=== PATIENT | male | born 1950 | race Caucasian/White ===

== ENCOUNTER 2024-05-04 06:09 | Day surgery (SDC) | payer MEDICARE, BC, SELFPAY ==
[2024-04-30 13:58] VITALS: BMI 30.9
[2024-05-04 06:34] VITALS: BP 165/74; PULSE 67; RESP 18; TEMP 36.7; O2SAT 97
[2024-05-04] MEDS: LACTATED RINGERS 1000ML 1,000 ML 25 ML IV (06:54)
--- NOTE | 2024-05-04 07:15 | EXP.ANES.CKL ---
[facility] Disclaimer: The information contained in this section may have been updated after the patient was seen, as this information can be updated by other users. Medical History (Updated 05/04/24 @ 07:01 by Lashon Aparicio RN) Eczema Thyroid disease Pre-diabetes Hypertension Skin cancer GERD (gastroesophageal reflux disease) Dysphagia Surgical History (Updated 05/04/24 @ 07:01 by Lashon Aparicio RN) Hx of cataract surgery Hx of colonoscopy H/O esophagogastroduodenoscopy Hx of tonsillectomy History of surgery Hx of total knee replacement Family History (Updated 05/04/24 @ 06:51 by Lashon Aparicio RN) Other Diabetes Heart attack Social History (Updated 05/04/24 @ 06:52 by Lashon Aparicio RN) Smoking Status: Never smoker alcohol intake: never substance use type: denies use current occupational status: employed Travel in the last 8 weeks: None caffeine: No [facility] Anesthesia Checklist Patient Identification Patient Identification: Arm Band, Family and Verbal (Name & ) Structural Data Admitted From: Home Planned Operative Procedure/s: EGD Consent for Planned Operative Procedure(s) Verified: Yes Verified Documents: Surgical Consent and History and Physical NPO Status Verified Time NPO: 22:00 Additional verifications Fingerstick Blood Glucose: 117 Patient : No Anesthesia Reactions: No Previous Colonoscopy: Yes Cardiovascular Assessment Heart Sounds: S1 & S2 Pulse Rhythm: Irregular Peripheral Edema: No Airway Assessment Mallampati Score:: Class II Dentition: Good Dentition (Nothing loose per pt.) Neurological Assessment Level of Consciousness: Awake, Alert, Appropriate and Follows Commands Hx Seizures: No Numbness or tingling in extremities: No Anesthesia Plan Anesthesia Risk discussed: Yes Anesthesia Plan: Verified ASA Class: III Anesthesia Type: MAC
--- NOTE | 2024-05-04 07:30 | EXP.HP ---
History of Present Illness *Admission Date: 05/04/24 *Reason for visit:: GERD/dysphagia *History of present illness: Mr. Patel is a 73-year-old gentleman who is here for chronic GERD now with dysphagia. The examination is deemed medically necessary for diagnostic/therapeutic EGD. The patient has been seen, interviewed and examined prior to the procedure by both myself and the anesthesia provider. [facility] Disclaimer: The information contained in this section may have been updated after the patient was seen, as this information can be updated by other users. Medical History (Updated 05/04/24 @ 07:01 by Lashon Aparicio RN) Eczema Thyroid disease Pre-diabetes Hypertension Skin cancer GERD (gastroesophageal reflux disease) Dysphagia Surgical History (Updated 05/04/24 @ 07:01 by Lashon Aparicio RN) Hx of cataract surgery Hx of colonoscopy H/O esophagogastroduodenoscopy Hx of tonsillectomy History of surgery Hx of total knee replacement Family History (Updated 05/04/24 @ 06:51 by Lashon Aparicio RN) Other Diabetes Heart attack Social History (Updated 05/04/24 @ 07:16 by Isamar Pierce CRNA) Smoking Status: Never smoker alcohol intake: never substance use type: denies use current occupational status: employed Travel in the last 8 weeks: None caffeine: No Have you lived/traveled outside US in past 30 days?: No Contact w/someone who lives/traveled outside US past 30 days?: No Exposure to someone with infectious disease in past 14 days?: No Do you have a fever (greater than 100.4 F or 38 C)?: No Have you tested positive for COVID-19: Yes Exposed to someone with COVID-19 in past 14 days?: Yes Do you have a sore throat?: No Do you have a cough?: No Do you have any weakness?: No Are you experiencing any nausea/vomitting?: No Do you have any diarrhea?: No Are you experiencing any unusual bleeding?: No Do you have any muscle aches/pain?: No Do you have any abdominal pain?: No Are you experiencing loss of taste or smell?: No Other Medical History Have you received the Pneumonia Vaccine: No Review of Systems Review of Systems Review of systems (narrative): Negative *Cardiovascular Comments: Negative *Gastrointestinal Comments: Negative *Genitourinary Comments: Negative *Musculoskeletal Comments: Negative *Neurologic Comments: Negative Meds Home Medications and Allergies Home Medications ?Medication ?Instructions ?Recorded ?Confirmed ?Type amlodipine 5 mg tablet 5 mg PO DAILY 04/01/24 05/04/24 History cholecalciferol (vit D3) 1,000 2 tab PO DAILY 04/01/24 05/04/24 History unit-vitamin K2 (MK4) 100 mcg tablet (K2 Plus D3) coQ10 (ubiquinol) 100 mg capsule 100 mg PO DAILY 04/01/24 05/04/24 History (Qunol Christopher CoQ10) doxazosin 4 mg tablet 8 mg PO BID 04/01/24 05/04/24 History hydralazine 100 mg tablet 100 mg PO TID 04/01/24 05/04/24 History levothyroxine 50 mcg tablet 50 mcg PO DAILY 04/01/24 05/04/24 History magnesium citrate 125 mg capsule 125 mg PO DAILY 04/01/24 05/04/24 History metformin 500 mg tablet 1,000 mg PO BID 04/01/24 05/04/24 History metoprolol succinate 50 mg 50 mg PO DAILY 04/01/24 05/04/24 History tablet,extended release 24 hr multivitamin 1 tab PO DAILY 04/01/24 05/04/24 History omeprazole 40 mg capsule,delayed 40 mg PO DAILY #30 caps 04/01/24 05/04/24 Rx release tadalafil 10 mg tablet 5 mg PO DAILY 04/01/24 05/04/24 History testosterone enanthate 100 mg/0.5 100 mg SQ WEEKLY 04/01/24 05/04/24 History mL subcutaneous auto-injector vitamin B complex 1 cap PO DAILY 04/01/24 05/04/24 History sacubitril 97 mg-valsartan 103 mg 1 tab PO BID 05/04/24 05/04/24 History tablet (Entresto) New Prescriptions to Start Prescriptions: Allergies Allergy/AdvReac Type Severity Reaction Status Date / Time No Known Allergies Allergy Verified 05/04/24 06:24 Exam Data for Last 24 hours Vital signs and Labs for Last 24 Hours: Temp Pulse Resp BP Pulse Ox O2 Del Method 98.0 F 67 18 165/74 H 97 Room Air 05/04/24 06:34 05/04/24 06:34 05/04/24 06:34 05/04/24 06:34 05/04/24 06:34 05/04/24 06:34 *Routine HEENT Exam Head: Present normocephalic Eye: Present EOMI and PERRL ENT: Present mucous membranes moist *Routine Neck Exam Neck: Present supple *Routine Respiratory Exam Respiratory: Present CTA bilaterally *Routine Cardiovascular Exam Cardiovascular: Present RRR *Routine Abdominal Exam Abdominal: Present soft and normoactive bowel sounds; Absent tenderness *Routine Rectal Exam Rectal:: deferred *Routine Genitalia Exam Genitalia:: deferred *Routine Extremities Exam Extremities: Absent cyanosis, clubbing or edema *Routine Skin Exam Skin: Present warm; Absent rash *Routine Neurological Exam Neurological: Present alert and oriented X3 Assessment and Plan *Assessment and plan (1) GERD (gastroesophageal reflux disease): Status: Acute Category: Medical Code(s): K21.9 - Gastro-esophageal reflux disease without esophagitis (2) Dysphagia: Status: Acute Category: Medical Code(s): R13.10 - Dysphagia, unspecified Plan A/P: 1. GERD now with dysphagia is the preprocedural diagnosis. The patient will be anesthetized/sedated using MAC sedation. The patient has been seen and examined. Cardiac and lung assessment prior to the examination is stable. Proceed with planned diagnostic/therapeutic EGD
[2024-05-04 07:32] VITALS: O2SAT 98
--- NOTE | 2024-05-04 07:32 | P.PCN_ITS ---
[facility] Procedure Note Date: 05/04/24 Procedure Note:: Upper Endoscopy Procedure Report: Esophagogastroduodenoscopy with cold biopsies and TTS balloon dilation Endoscopost: Travis Sanchez II, MD Referring Physician: Elieser Powell MD Date of Procedure: May 02, 2024 Equipment: Olympus GIF 190 standard upper endoscope Sedation: MAC sedation Indications: Mr. Patel is a 73-year-old gentleman who reports chronic GERD for 25 years. He does take [id number] omeprazole, Gas-X and Tums. He has had some increased swallowing difficulty/dysphagia to larger pills and tablets. Sometimes liquids make him cough. He has had some increased wheezing. He does get some symptoms postprandially. He does take omeprazole 40 mg in the morning. He does state that he had a bleeding duodenal ulcer in 2003 requiring blood transfusion. At that time, Dr. Jose Manuel Goodwin (seat trimmer at [place]) did upper endoscopy and colonoscopy. At the time of his upper endoscopy, he did coagulation or gold probe. He also dilated the esophagus in 2003. His last colonoscopy was in 2003. The patient did have a negative Cologuard test 2 years ago. After his office visit, I did give him samples of Voquezna 10 mg and he had complete relief of his GERD symptoms without any breakthrough. He often does get breakthrough with omeprazole 40 mg daily. Procedure: Prior to the procedure, a history and physical exam was performed, and patient's medications and allergies were reviewed. The risks, benefits and alternatives of the sedation and procedure were discussed with the patient. All questions were answered and informed consent was obtained. The patient was brought to the procedure room. Patient identification and proposed procedure were verified by the physician and the nurse. The patient was placed in a left lateral decubitus position and the scope was passed under direct vision. Throughout the procedure, the patient's blood pressure, pulse, and oxygen saturations were monitored continuously. The upper GI endoscopy was accomplished without difficulty. The patient tolerated the procedure well. Findings: The scope was passed directly into the upper esophagus and advanced to the third portion of the duodenum. The post bulbar duodenum and duodenal bulb were normal with normal mucosa and conniventes. The scope was withdrawn through a normal duodenal bulb and pylorus into the stomach. There was mild linear reactive gastropathy of the antrum. There were scattered gastric fundic gland polyps in the body and fundus of the stomach. Upon retroflexion there was no hiatal hernia. Cold biopsies were taken from the antrum. One of the fundic gland polyps was removed via cold biopsy as well. The scope was then withdrawn into the esophagus. There was no evidence of reflux esophagitis, Yarbrough's, Schatzki's ring or peptic stricture. There was no corrugation or furrowing. There were strong tertiary contractions and evidence of moderate esophageal dysmotility. The entire esophagus was dilated to 60 Estonian/20 mm with a TTS hydrostatic balloon. There was minimal resistance. The remainder of the esophageal mucosa was normal. Impression: 1. Nonerosive GERD with moderate esophageal dysmotility status post dilation to 20 mm 2. Mild linear reactive gastropathy of antrum 3. Gastric fundic gland polyps Plan: I will follow-up the biopsies. The patient does have uncomplicated GERD. We will discuss treatment options. The patient did have clinical improvement with Voquezna without breakthrough symptoms which often occur with omeprazole 40 mg.
[2024-05-04 07:45] VITALS: BP 139/69; PULSE 62; RESP 18; TEMP 37.1; O2SAT 96
[2024-05-04 07:55] VITALS: BP 152/73; PULSE 73; RESP 18; O2SAT 96
[2024-05-04 08:05] VITALS: BP 158/69; PULSE 70; RESP 20; O2SAT 96
[2024-05-04 08:25] VITALS: BP 149/76; PULSE 62; RESP 18; O2SAT 95
== END 2024-05-04 08:25 | disposition home or self-care (01) ==
PROVIDERS: PCP Family Medicine; Visit Provider Internal Medicine Gastroenterology
PROC: 0DJ08ZZ Inspection of Upper Intestinal Tract, Via Natural or Artificial Opening Endoscopic (ICD-10-PCS; CPT 43235; principal; 2024-05-04 07:30)
DX: K21.9 Gastro-esophageal reflux disease without esophagitis (principal); R13.10 Dysphagia, unspecified; K31.7 Polyp of stomach and duodenum; K31.9 Disease of stomach and duodenum, unspecified; K22.4 Dyskinesia of esophagus
CPT/HCPCS: 43239; 43249; C1726; J7120

== ENCOUNTER 2024-08-26 08:00 | Day surgery (SDC) | payer MEDICARE, BC, SELFPAY ==
[2024-07-02 15:13] VITALS: BMI 29.7
[2024-08-21 09:41] VITALS: BMI 29.7
[2024-08-26] VITALS (7 sets, daily range): BP systolic 91–122; BP diastolic 43–59; PULSE 60–83; RESP 17–18; TEMP 36.3–36.4; O2SAT 94–97
[2024-08-26 08:46] LABS: POC Glucose,Bedside 108 (70-110)
[2024-08-26] MEDS: LACTATED RINGERS 1000ML 1,000 ML 50 ML IV (08:52)
--- NOTE | 2024-08-26 09:11 | P.PNANES_ITS ---
[facility] Disclaimer: The information contained in this section may have been updated after the patient was seen, as this information can be updated by other users. Medical History Eczema Thyroid disease Pre-diabetes Hypertension Skin cancer GERD (gastroesophageal reflux disease) Dysphagia Surgical History Hx of cataract surgery Hx of colonoscopy H/O esophagogastroduodenoscopy Hx of tonsillectomy History of surgery Hx of total knee replacement Family History Mother Family history of cancer Other Diabetes Heart attack Social History Smoking Status: Never smoker alcohol intake: never substance use type: denies use current occupational status: employed Travel in the last 8 weeks: None caffeine: No Have you lived/traveled outside US in past 30 days?: No Contact w/someone who lives/traveled outside US past 30 days?: No Exposure to someone with infectious disease in past 14 days?: No Do you have a fever (greater than 100.4 F or 38 C)?: No Have you tested positive for COVID-19: No Exposed to someone with COVID-19 in past 14 days?: No Do you have a sore throat?: No Do you have a cough?: No Do you have any weakness?: No Are you experiencing any nausea/vomitting?: No Do you have any diarrhea?: No Are you experiencing any unusual bleeding?: No Do you have any muscle aches/pain?: No Do you have any abdominal pain?: No Are you experiencing loss of taste or smell?: No [facility] Anesthesia Checklist Patient Identification Patient Identification: Arm Band Structural Data Admitted From: Home Planned Operative Procedure/s: Colonoscopy Consent for Planned Operative Procedure(s) Verified: Yes Verified Documents: Surgical Consent and History and Physical NPO Status Verified Time NPO: 06:00 (finished prep) Additional verifications Anesthesia Reactions: No Airway Assessment Mallampati Score:: Class II C-Spine Mobility Assessed: Yes TMJ Mobility Assessed: Yes Dentition: Good Dentition Neurological Assessment Level of Consciousness: Awake, Alert and Appropriate Anesthesia Plan Anesthesia Risk discussed: Yes Anesthesia Plan: Verified ASA Class: III Anesthesia Type: MAC
--- NOTE | 2024-08-26 09:15 | EXP.HP ---
History of Present Illness *Admission Date: 08/26/24 *Reason for visit:: Screening colonoscopy *History of present illness: Mr. Patel is a 74-year-old gentleman who is here for screening colonoscopy. The examination is deemed medically necessary for screening colonoscopy. The patient's last colonoscopy was in 2003. The patient has been seen, interviewed and examined prior to the procedure by both myself and the anesthesia provider. [facility] Disclaimer: The information contained in this section may have been updated after the patient was seen, as this information can be updated by other users. Medical History (Updated 08/26/24 @ 09:16 by Travis Sanchez II, MD) Eczema Thyroid disease Pre-diabetes Hypertension Skin cancer GERD (gastroesophageal reflux disease) Dysphagia Surgical History Hx of cataract surgery Hx of colonoscopy H/O esophagogastroduodenoscopy Hx of tonsillectomy History of surgery Hx of total knee replacement Family History Mother Family history of cancer Other Diabetes Heart attack Social History Smoking Status: Never smoker alcohol intake: never substance use type: denies use current occupational status: employed Travel in the last 8 weeks: None caffeine: No Have you lived/traveled outside US in past 30 days?: No Contact w/someone who lives/traveled outside US past 30 days?: No Exposure to someone with infectious disease in past 14 days?: No Do you have a fever (greater than 100.4 F or 38 C)?: No Have you tested positive for COVID-19: No Exposed to someone with COVID-19 in past 14 days?: No Do you have a sore throat?: No Do you have a cough?: No Do you have any weakness?: No Are you experiencing any nausea/vomitting?: No Do you have any diarrhea?: No Are you experiencing any unusual bleeding?: No Do you have any muscle aches/pain?: No Do you have any abdominal pain?: No Are you experiencing loss of taste or smell?: No Other Medical History Have you received the Pneumonia Vaccine: No Review of Systems Review of Systems Review of systems (narrative): Negative *Cardiovascular Comments: Negative *Gastrointestinal Comments: Negative *Genitourinary Comments: Negative *Musculoskeletal Comments: Negative *Neurologic Comments: Negative Meds Home Medications and Allergies Home Medications ?Medication ?Instructions ?Recorded ?Confirmed ?Type amlodipine 5 mg tablet (Norvasc) 5 mg PO DAILY 04/01/24 08/26/24 History cholecalciferol (vit D3) 1,000 2 tab PO DAILY 04/01/24 08/26/24 History unit-vitamin K2 (MK4) 100 mcg tablet (K2 Plus D3) coQ10 (ubiquinol) 100 mg capsule 100 mg PO DAILY 04/01/24 08/26/24 History (Qunol Christopher CoQ10) doxazosin 4 mg tablet (Cardura) 8 mg PO BID 04/01/24 08/26/24 History hydralazine 100 mg tablet 100 mg PO TID 04/01/24 08/26/24 History levothyroxine 50 mcg tablet 50 mcg PO DAILY 04/01/24 08/26/24 History (Synthroid) magnesium citrate 125 mg capsule 125 mg PO DAILY 04/01/24 08/26/24 History metformin 500 mg tablet 1,000 mg PO BID 04/01/24 08/26/24 History metoprolol succinate 50 mg 50 mg PO DAILY 04/01/24 08/26/24 History tablet,extended release 24 hr multivitamin 1 tab PO DAILY 04/01/24 08/26/24 History omeprazole 40 mg capsule,delayed 40 mg PO DAILY #30 caps 04/01/24 08/26/24 Rx release tadalafil 10 mg tablet (Cialis) 5 mg PO DAILY 04/01/24 08/26/24 History testosterone enanthate 100 mg/0.5 100 mg SQ WEEKLY 04/01/24 08/26/24 History mL subcutaneous auto-injector (Xyosted) vitamin B complex (Vitamins B 1 cap PO DAILY 04/01/24 08/26/24 History Complex capsule) sacubitril 97 mg-valsartan 103 mg 1 tab PO BID 05/04/24 08/26/24 History tablet (Entresto) sodium,potassium,mag sulfates 17.5 See Rx Instructions PO .COMPLEX 06/26/24 08/26/24 Rx gram-3.13 gram-1.6 gram oral soln #354 mL (Suprep Bowel Prep Kit) cyanocobalamin (vitamin B-12) 25 25 mcg PO DAILY 08/21/24 08/26/24 History mcg tablet lisinopril 20 mg tablet 20 mg PO DAILY 08/21/24 08/26/24 History magnesium 30 mg tablet 30 mg PO DAILY 08/21/24 08/26/24 History New Prescriptions to Start Prescriptions: Allergies Allergy/AdvReac Type Severity Reaction Status Date / Time No Known Allergies Allergy Verified 08/26/24 08:32 Exam Data for Last 24 hours Vital signs and Labs for Last 24 Hours: Temp Pulse Resp BP Pulse Ox O2 Del Method O2 Flow Rate 97.5 F L 83 18 122/59 L 97 Nasal Cannula 5 08/26/24 08:33 08/26/24 08:33 08/26/24 08:33 08/26/24 08:33 08/26/24 08:33 08/26/24 09:12 08/26/24 09:12 Laboratory Results - last 24 hr 08/26/24 08:38: POC Glucose 108 *Routine HEENT Exam Head: Present normocephalic Eye: Present EOMI and PERRL ENT: Present mucous membranes moist *Routine Neck Exam Neck: Present supple *Routine Respiratory Exam Respiratory: Present CTA bilaterally *Routine Cardiovascular Exam Cardiovascular: Present RRR *Routine Abdominal Exam Abdominal: Present soft and normoactive bowel sounds; Absent tenderness *Routine Rectal Exam Rectal:: deferred *Routine Genitalia Exam Genitalia:: deferred *Routine Extremities Exam Extremities: Absent cyanosis, clubbing or edema *Routine Skin Exam Skin: Present warm; Absent rash *Routine Neurological Exam Neurological: Present alert and oriented X3 Assessment and Plan *Assessment and plan (1) Screening for colon cancer: Status: Acute Category: Medical Code(s): Z12.11 - Encounter for screening for malignant neoplasm of colon Plan A/P: 1. Screening for colon cancer is the preprocedural diagnosis. The patient will be anesthetized/sedated using MAC sedation. The patient has been seen and examined. Cardiac and lung assessment prior to the examination is stable. Proceed with planned screening colonoscopy.
--- NOTE | 2024-08-26 09:16 | HMH.PROCNOTE ---
[facility] Procedure Note Date: 08/26/24 Time: 09:36 Procedure Note:: Colonoscopy Procedure Report: Colonoscopy with cold snare polypectomy Endoscopist: Travis Sanchez II, MD Referring physician: Elieser Powell MD Date of Procedure: August 26, 2024 Equipment: Olympus 190 variable stiffness pediatric colonoscope Sedation: MAC sedation Indication: Mr. Patel is a 74-year-old gentleman who is here for screening colonoscopy. His last colonoscopy was in 2003. He did have a negative Cologuard test 2 or 3 years ago. The patient reports no abdominal pain, weight loss, change in his bowel habits or rectal bleeding. He reports no family history of colon cancer. Procedure: Prior to the procedure, a history and physical exam was performed, and patient's medications and allergies were reviewed. The risks, benefits and alternatives of the sedation and procedure were discussed with the patient. All questions were answered and informed consent was obtained. The patient was brought to the procedure room. Patient identification and proposed procedure were verified by the physician and the nurse. The patient was placed in a left lateral decubitus position and the scope was passed under direct vision. Throughout the procedure, the patient's blood pressure, pulse, and oxygen saturations were monitored continuously. The colonoscopy was accomplished without difficulty. The patient tolerated the procedure well. Findings: On digital rectal examination there was normal rectal tone. There were no external hemorrhoids. The colonoscope was introduced through the anal canal to the rectum and advanced to the cecum. The ileocecal valve and appendiceal orifice were identified. The scope was advanced a short distance into the ileum which appeared grossly normal. The scope was then withdrawn into the colon. There were 8 colon polyps (ascending x 2 (3 and 4 mm), descending x 3 (3, 6 and 8 mm), sigmoid x 2 (5 and 7 mm) and rectosigmoid x 1 (9 mm)). These were all removed via cold snare polypectomy. The remaining cecum, ascending and transverse colon and mucosa were grossly normal. There were scattered diverticuli throughout the descending and sigmoid colon (LEFT colon). The rectum itself was normal. Upon retroflexion within the rectum there were grade 2 internal hemorrhoids. The preparation was excellent throughout with Orwell Preparation Score of 9. The cecal time was 15 minutes. Impression: 1. Colonic polyps x 8 2. Left-sided diverticulosis 3. Grade 2 internal hemorrhoids Plan: I will follow-up the polyp histology and recommend repeat surveillance colonoscopy again in 3 years based upon the number and size of adenomatous colon polyps. I would encourage psyllium bulking fiber supplementation on a long-term daily maintenance basis.
--- NOTE | 2024-08-26 09:58 | P.PCN_ITS ---
[facility] Procedure Note Date: 08/26/24 Procedure Note::
--- NOTE | 2024-08-26 09:58 | HMH.PROCNOTE ---
[facility] Procedure Note Date: 08/26/24 Procedure Note::
== END 2024-08-26 10:52 | disposition home or self-care (01) ==
PROVIDERS: PCP Family Medicine; Visit Provider Internal Medicine Gastroenterology
PROC: 0DJD8ZZ Inspection of Lower Intestinal Tract, Via Natural or Artificial Opening Endoscopic (ICD-10-PCS; CPT 45378; principal; 2024-08-26 09:30)
DX: K63.5 Polyp of colon (principal); K57.30 Diverticulosis of large intestine without perforation or abscess without bleeding; K64.1 Second degree hemorrhoids; Z12.11 Encounter for screening for malignant neoplasm of colon; R73.03 Prediabetes
CPT/HCPCS: 45385; 82962; J7120